=== PATIENT | female | born 1965 | race African-American/Black ===

== ENCOUNTER 2018-10-13 13:42 | Emergency (ER) | payer MEDICARE, MEDICAID ==
[~2018-10-13] VITALS: Ht 167.6 cm; Wt 129.5 kg
[~2018-10-13 13:42] MED LIST: AMITRIPTYLINE25 MG PO; DIAZEPAM5 MG PO; TREXALL5 MG PO
[2018-10-13 13:51] VITALS: TEMP 97.8
[2018-10-13] MEDS ORDERED: ATARAX 25MG25 MG/TAB PO (14:04)
[2018-10-13] MEDS ORDERED: ROXICODONE15 MG PO (14:04)
[2018-10-13] MEDS ORDERED: VENTOLIN0.09 MG IH (14:05)
[2018-10-13] MEDS ORDERED: HCTZ 25MG TAB25 MG PO (14:05)
[2018-10-13 14:23] LABS: COLLECTION METHOD CLEAN CATCH
[2018-10-13 14:29] LABS: PH 8 (5-8); SQUAMOUS EPITHELIAL 0-2 /hpf; URINE APPEARANCE Clear; URINE BACTERIA Rare /hpf; URINE BILIRUBIN Negative (NEGATIVE); URINE BLOOD Negative (NEGATIVE); URINE COLOR Straw; URINE GLUCOSE Negative (NEGATIVE); URINE KETONE Negative (NEGATIVE); URINE LEUKOCYTE ESTERASE Negative (NEGATIVE); URINE NITRATE Negative (NEGATIVE); URINE PROTEIN(semi-quant) Negative (NEGATIVE); URINE RBC None Seen /hpf; URINE UROBILINOGEN Negative (NEGATIVE)
[2018-10-13 15:08] LABS: BASO % 0.3 % (0.0-2.0); EOS # 0.1 (0.0-0.7); EOS % 0.7 % (0-4.0); GRAN # 4.3 (1.4-6.5); GRAN % 59.8 % (42.2-75.2); HEMOGLOBIN 11.9 g/dl (12.5-16.0); LYMPH # 2.4 (1.2-3.4); LYMPH % 33.2 % (20.0-51.0); MEAN CELL VOLUME 81 fl (80.0-100.0); MEAN CORPUSCULAR HEMOGLOBIN 27 pg (27.0-31.0); MEAN CORPUSCULAR HGB CONC 34 g/dl (33.0-37.0); MONO # 0.4 (0.1-0.6); MONO % 5.7 % (1.7-9.3); PLATELET COUNT 323 K/mm3 (130-400); RED BLOOD COUNT 4.37 M/mm3 (4.10-5.30); REDCELL DISTRIBUTION WIDTH-CV 12.5 % (11.5-14.5)
[2018-10-13 15:18] LABS: ALBUMIN 3.4 gm/dL (3.5-5.0); BILIRUBIN,TOTAL 0.8 mg/dL (0.0-1.0); C-REACTIVE PROTEIN 7.7 mg/dL (0.0-0.9); CALCIUM 9.6 mg/dL (8.4-10.2); CREATININE, serum 0.76 (0.52-1.25); POTASSIUM 3.1 mmol/L (3.4-5.0); TOTAL PROTEIN 7.1 gm/dL (6.4-8.2)
[2018-10-13 15:41] LABS: ERYTHROCYTE SEDIMENTATION RATE 100 mm/hr (0-30); HEMATOCRIT 35.4 % (37.0-47.0)
[2018-10-13 15:53] LABS: INR 1.1 (0.8-3.0); PROTHROMBIN TIME 12.2 SECONDS (9.7-12.8)
[2018-10-13 15:55] LABS: PARTIAL THROMBOPLASTIN TIME 30.6 SECONDS (26.0-37.0)
[2018-10-13] MEDS ORDERED: PERCOCET 325 MG1 TA2 PO (16:05)
[2018-10-13] MEDS ORDERED: PREDNISONE20 MG PO (16:05)
[2018-10-13 16:22] VITALS: BP 131/83; PULSE 98
== END 2018-10-13 16:35 | disposition home or self-care (01) ==
LOC: COL.ER 13:42
PROVIDERS: Emergency Medicine; Family Medicine
DX: M06.9 Rheumatoid arthritis, unspecified (principal)
CPT/HCPCS: J1650; J7512

== ENCOUNTER → 2018-10-14 | Outpatient (CLI) | payer MEDICARE, MEDICAID ==
[~2018-10-14] MED LIST changes: +ATARAX 25MG25 MG/TAB PO; +HCTZ 25MG TAB25 MG PO; +PERCOCET 325 MG1 TA2 PO; +PREDNISONE20 MG PO; +ROXICODONE15 MG PO; +VENTOLIN0.09 MG IH
== END ==
LOC: COL.VAS 11:57
DX: M79.89 Other specified soft tissue disorders (principal)